=== PATIENT | female | born 1960 | race Caucasian/White ===

== ENCOUNTER 2017-12-01 05:56 | Day surgery (SDC) | payer OTHER ==
[~2017-12-01] VITALS: Ht 165.1 cm; Wt 57.6 kg
[2017-12-01] VITALS (11 sets, daily range): BP systolic 100–139; BP diastolic 50–80
[2017-12-01] MEDS ORDERED: ESTROGEL50 GM TD (06:31)
[2017-12-01] MEDS ORDERED: PROGESTERONE100 MG PO (06:31)
[2017-12-01] MEDS ORDERED: LR 1000ml ONE (07:00)
[2017-12-01] MEDS ORDERED: Sterile Water Irrig 1000ml IRRIG ONE (07:00)
[2017-12-01] MEDS ORDERED: Neostigmine 1mg/ml 10ml Inj ONE (07:00)
[2017-12-01] MEDS ORDERED: NS Irrig 1000ml ONE (07:00)
[2017-12-01] MEDS ORDERED: Glycopyrrolate 0.2mg/ml 1ml Vial ONE (07:00)
[2017-12-01] MEDS ORDERED: Ropivacaine 5mg/ml Vial 30ml INJ ONE ×2 (07:05→08:39)
[2017-12-01] MEDS ORDERED: Lidocaine 1% 10mg/ml/Epi 0.005mg/ml 30ml vial INJ ONE (07:05)
[2017-12-01] MEDS ORDERED: Bacitracin 50000 Units Vial ONE (07:05)
[2017-12-01] MEDS ORDERED: Midazolam 2mg/2ml Inj ONE (07:08)
[2017-12-01] MEDS ORDERED: fentaNYL 100 mcg/2 mL IV ONE (07:08)
--- NOTE | 2017-12-01 07:14 | Pre-Procedure Note/Attestation ---
Pre-Procedure Note/Attestation Complete Prior to Procedure Planned Procedure: right Procedure Narrative: Right proximal humerus ORIF Indications for Procedure Pre-Operative Diagnosis: Right proximal humerus fracture Attestation I attest that I discussed the nature of the procedure; its benefits; risks and complications; and alternatives (and the risks and benefits of such alternatives ), prior to the procedure, with the patient (or the patient's legal client support representative). I attest that, if there was a reasonable possibility of needing a blood transfusion, the patient (or the patient's legal client support representative) was given the [facility] standardized written summary, pursuant to the [place] Blood Safety Act ([place] [facility] and Safety Code # 1645, as amended). I attest that I re-evaluated the patient just prior to the surgery and that there has been no change in the patient's H&P, except as documented below: Donald Whiting MD Dec 01, 2017 07:14
[2017-12-01] MEDS ORDERED: Bupivacaine 0.25% Inj 30ml INJ ONE (07:21)
[2017-12-01] MEDS ORDERED: Zemuron 50mg/5ml Inj IV ONE (07:21)
[2017-12-01] MEDS ORDERED: Acetaminophen (Non formulary) 100 ML IV SCH (07:45)
[2017-12-01] MEDS ORDERED: Lidocaine 1% MPF 10mg/ml 5ml ONE (08:39)
[2017-12-01] MEDS ORDERED: Propofol 200mg/20ml IV ONE (08:39)
[2017-12-01] MEDS ORDERED: ePHEDrine 50mg/ml Inj ONE (08:39)
[2017-12-01] MEDS ORDERED: Metoclopramide 10mg/2ml Inj ONE (08:39)
[2017-12-01] MEDS ORDERED: Metoclopramide 10mg/2ml Inj IVP PRN (09:15)
[2017-12-01] MEDS ORDERED: Ketorolac 30mg Inj IV PRN (09:15)
[2017-12-01] MEDS ORDERED: fentaNYL 100 mcg/2 mL IV PRN (09:15)
--- NOTE | 2017-12-01 09:34 | Anethesia Preoperative Eval ---
Anesthesia Pre-op PMH/ROS General Date of Evaluation: Dec 01, 2017 Time of Evaluation: 07:30 Anesthesiologist: camden ASA Score: ASA 1 Mallampati Score Class I : Soft palate, uvula, fauces, pillars visible Class II: Soft palate, uvula, fauces visible Class III: Soft palate, base of uvula visible Class IV: Only hard plate visible Mallampati Classification: Class III Surgeon: emiliana Diagnosis: fx humerus Surgical Procedure: ORIF Fx Humerus Anesthesia History: PONV Family History: no anesthesia problems Allergies: Coded Allergies: AMITRIPTYLINE (Verified Allergy, Severe, Rash, 12/01/17) AMOXICILLIN (Verified Allergy, Severe, chest tightness, 12/01/17) DIMENHYDRINATE (Verified Allergy, Severe, Rash, 12/01/17) CLINDAMYCIN (Verified Allergy, Intermediate, chest tightness, 12/01/17) Medications: see eMAR Past Medical History Cardiovascular: Denies: HTN, CAD, [place], valve dz, arrhythmia, other Pulmonary: Denies: asthma, COPD, TOMÁS, other Gastrointestinal/Genitourinary: Denies: GERD, CRI, ESRD, other Neurologic/Psychiatric: Denies: dementia, CVA, depression/anxiety, TIA, other Endocrine: Denies: DM, hypothyroidism, steroids, other HEENT: Denies: cataract (L), cataract (R), glaucoma, [place] (L), [place] (R), other Hematology/Immune: Denies: anemia, DVT, bleeding disorder, other PSxH Narrative: breast reduction Anesthesia Pre-op Phys. Exam Physician Exam Last Vital Signs Date Time Temp Pulse Resp B/P (MAP) Pulse Ox O2 Delivery O2 Flow Rate FiO2 12/01/17 06:34 98.2 63 18 139/68 100 Room Air 98.2 Constitutional: NAD Neurologic: CN 2-12 intact Cardiovascular: RRR Respiratory: CTA Gastrointestinal: S/NT/ND Airway Exam Mallampati Classification 3 Mallampati Score: Class III MO: full Neck: normal TMD: 2fb ROM: full Dentures: no upper, no lower Anesthesia Pre-op A/P Studies Pre-op Studies: EKG - sr Risk Assessment & Plan Assessment: denies cp sob or changes in health Plan: general + Peripheral block Pre-Antibiotics Drug: ancef Given Within 1 Hr of Incision: Yes Time Given: 07:40 Nishi Mann FLORAL DESIGNER SALESPERSON Dec 01, 2017 09:34
--- NOTE | 2017-12-01 10:12 | Brief Operative Note ---
Immediate Post Operative Note Operative Note Pre-op Diagnosis: Right proximal humerus fracture Procedure: Right proximal humerus ORIF Post-op Diagnosis: same as pre-op Findings: consistent w/pre-op dx studies Surgeon: Henok Anesthesia: general, regional, local Specimen: none Complications: none Condition: stable Fluids: 100ml Estimated Blood Loss: minimal Drains: none Implant(s) used?: Yes Donald Whiting MD Dec 01, 2017 10:12
--- NOTE | 2017-12-01 10:33 | Immediate Post-Op Evaluation ---
Immediate Post-Op Evalulation Immediate Post-Op Evalulation Procedure: ORIF humerus right Date of Evaluation: Dec 01, 2017 Time of Evaluation: 10:10 IV Fluids: 500 Blood Pressure Systolic: 105 Blood Pressure Diastolic: 70 Pulse Rate: 75 Respiratory Rate: 14 O2 Sat by Pulse Oximetry: 100 Temperature (Fahrenheit): 97.7 Nausea: No Vomiting: No Complications none Patient Status: awake, reacts, patent Hydration Status: adequate Drug: ancef Given Within 1 Hr of Incision: Yes Time Given: 07:10 Nishi Mann CRNA Dec 01, 2017 10:33
--- NOTE | 2017-12-01 11:36 | Diagnostic Imaging Report ---
Indication: Fracture, postoperative Technique: 2 views of the right shoulder Comparison: none Findings: There are 2 surgical screws seen reducing a greater tuberosity fracture. Retained air from the surgical exposure is seen within the soft tissues and probably the joint space. The humeral head appears slightly inferiorly subluxed. Impression: Postoperative right shoulder. No unusual features
--- NOTE | 2017-12-01 11:37 | Diagnostic Imaging Report ---
Indication: Pain, intraoperative Technique: Intraoperative images Comparison: none Findings: Intraoperative images document surgical repair of previously tuberosity fracture with 2 surgical screws. Impression: Intraoperative imaging, as described
--- NOTE | 2017-12-01 11:51 | 48 Hour Post Anesthesia Eval ---
Post Anesthesia Evaluation Procedure: ORIF humerus right Date of Evaluation: Dec 01, 2017 Time of Evaluation: 11:50 Blood Pressure Systolic: 100 0: 50 Pulse Rate: 65 Respiratory Rate: 14 O2 Sat by Pulse Oximetry: 99 Airway: patent Nausea: No Vomiting: No Hydration Status: adequate Cardiopulmonary Status: stable Mental Status/LOC: patient returned to baseline Follow-up Care/Observations: na Post-Anesthesia Complications: none Follow-up care needed: N/A Nishi Mann CRNA Dec 01, 2017 11:51
[2017-12-01] MEDS ORDERED: D5 1/2NS 1,000 ML IV SCH (16:01)
[2017-12-01] MEDS ORDERED: Norco 5mg/325mg tab ORAL PRN (16:01)
[2017-12-01] MEDS ORDERED: Tylenol #3 tab (300mg/30mg) ORAL PRN (16:01)
--- NOTE | 2017-12-01 17:30 | Operative Note - Dictated ---
DATE OF OPERATION: 12/01/2017 SURGEON: Donald Whiting M.D. ROBOT DESIGNER: None. ANESTHESIA: General plus regional plus local. COMPLICATIONS: None. ANTIBIOTICS: Ancef. PREOPERATIVE DIAGNOSIS: Right proximal humerus displaced greater tuberosity fracture and nondisplaced surgical neck fracture. POSTOPERATIVE DIAGNOSIS: Right proximal humerus displaced greater tuberosity fracture and nondisplaced surgical neck fracture. PROCEDURE PERFORMED: Right proximal humerus open reduction and internal fixation using two 5.0 mm partially threaded, cannulated [place] screws, 1 with washer. BACKGROUND: The patient fell and sustained a displaced greater tuberosity fracture and nondisplaced surgical neck fracture. All risks, benefits, and alternatives to surgical intervention were discussed in great detail. Risks included, but were not limited to, bleeding, infection, neurovascular injury, need for additional surgical intervention, failure of pain relief, arthrofibrosis, complications of anesthesia, blood clots, stroke, heart attack, and potentially . She understood these risks, amongst others including malunion, nonunion, rotational deformity, and need for hardware removal, and consent was signed. PROCEDURE IN DETAIL: The patient was brought to the operating room, placed supine on the operating table. She was placed into a beach chair position with all bony prominences appropriately padded. The right shoulder was correctly verified for surgical site and prepped and draped in standard sterile fashion. A gram of Ancef was given without complication. Fluoroscopic imaging was arranged and after once again correctly verifying surgical site, a lateral incision was created and a ball-tip spike was used to reduce the greater tuberosity into its anatomic position. Temporary K-wires were held in position of the reduction. Over drilling was then performed and 2 screws were secured into position, 1 using a washer. One of the partially threaded screws was able to cross both fracture planes in order to safely secure the nondisplaced surgical neck fracture while anatomically reducing the greater tuberosity fracture. Live fluoroscopic imaging confirmed no impingement. There was no migration at either fracture site with full range of motion under fluoroscopic imaging. Plain radiographs confirmed appropriate anatomic reduction and hardware placement. The wound was copiously irrigated and reapproximated using 2-0 Vicryl and Monocryl. Steri-Strips were used over Mastisol. Dry sterile dressing was applied. A sling was fitted. There were no complications. I attest, I performed the entire operation. She was then transferred to recovery in good condition. Donald Whiting M.D. DR: NAYE JOB#: [id number] CC:
== END 2017-12-01 12:55 | disposition home or self-care (01) ==
LOC: SUR 05:56
DX: S42.251A Displaced fracture of greater tuberosity of right humerus, initial encounter for closed fracture (principal); S42.214A Unspecified nondisplaced fracture of surgical neck of right humerus, initial encounter for closed fracture; Z88.1 Allergy status to other antibiotic agents; Z88.8 Allergy status to other drugs, medicaments and biological substances; Z90.710 Acquired absence of both cervix and uterus; Z82.49 Family history of ischemic heart disease and other diseases of the circulatory system; Z83.3 Family history of diabetes mellitus; Z80.8 Family history of malignant neoplasm of other organs or systems; Z80.3 Family history of malignant neoplasm of breast; W01.0XXA Fall on same level from slipping, tripping and stumbling without subsequent striking against object, initial encounter; Y93.02 Activity, running; Y92.89 Other specified places as the place of occurrence of the external cause
CPT/HCPCS: 23615; 73060; 76001; J2250; J2405; J2704; J2710; J2765; J2795; J3010; J3490; J7120